=== PATIENT | female | born 1965 | race Caucasian/White ===

== ENCOUNTER → 2024-04-10 11:25 | Outpatient (REF) | payer OTHER, SELFPAY | LOC: RAD 11:25 | PROVIDERS: ATTENDING PHYSICIAN Registered Nurse | DX: R31.0 Gross hematuria (principal) | CPT/HCPCS: 74176 ==

== ENCOUNTER → 2024-10-22 08:25 | Outpatient (REF) | payer OTHER, SELFPAY | LOC: HWWDC 08:25 | PROVIDERS: ATTENDING PHYSICIAN Family Medicine | DX: Z90.710 Acquired absence of both cervix and uterus (principal); E28.319 Asymptomatic premature menopause; Z12.31 Encounter for screening mammogram for malignant neoplasm of breast; Z87.891 Personal history of nicotine dependence | CPT/HCPCS: 71271; 77063; 77067; 77080 ==

== ENCOUNTER 2025-08-31 06:18 | Day surgery (SDC) | payer OTHER, SELFPAY | END 2025-08-31 12:05 | disposition home or self-care (01) | LOC: GI 06:18 | PROVIDERS: ATTENDING PHYSICIAN Internal Medicine Gastroenterology | DX: Z12.11 Encounter for screening for malignant neoplasm of colon (principal); Q43.8 Other specified congenital malformations of intestine; K64.8 Other hemorrhoids; K62.1 Rectal polyp | CPT/HCPCS: 45380; 88305 ==

== ENCOUNTER → 2025-10-25 15:01 | Outpatient (REF) | payer OTHER, SELFPAY | LOC: MRI 15:01 | PROVIDERS: ATTENDING PHYSICIAN Nurse Practitioner; FAMILY PHYSICIAN Family Medicine | DX: K74.3 Primary biliary cirrhosis (principal); K76.0 Fatty (change of) liver, not elsewhere classified | CPT/HCPCS: 74181; 76391 ==